=== PATIENT | female | born 1970 | race Caucasian/White ===

== ENCOUNTER → 2020-09-09 | Outpatient (CLI) | payer BC ==
--- NOTE | 2020-09-11 13:42 | MM ---
Reason for exam: screening (asymptomatic). Last mammogram was performed 4 years and 5 months ago. History: Patient had first child at age 38. Physical Findings: A clinical breast exam by your physician is recommended on an annual basis and results should be correlated with mammographic findings. MG Screening Mammo w CAD Bilateral CC and MLO view(s) were taken. Prior study comparison: April 23, 2016, bilateral MG 3d screening mammo w/cad. There is chronic nodularity in the left breast. No significant changes when compared with prior studies. ASSESSMENT: Benign, BI-RAD 2 RECOMMENDATION: Routine screening mammogram of both breasts in 1 year.
== END | disposition home or self-care (01) ==
LOC: RADMAMWWP 16:46
PROVIDERS: ATTEND Family Medicine
DX: Z12.31 Encounter for screening mammogram for malignant neoplasm of breast (principal)
CPT/HCPCS: 77067

== ENCOUNTER → 2020-09-19 | Outpatient (CLI) | payer BC ==
--- NOTE | 2020-09-19 12:39 | US ---
EXAMINATION TYPE: US pelvic complete DATE OF EXAM: 09/19/2020 COMPARISON: NONE CLINICAL HISTORY: 50-year-old female N93.9 abn uterine bleeding. Irregularity menses TECHNIQUE: Transabdominal (TA). Date of LMP: 09/09/20 FINDINGS: EXAM MEASUREMENTS: Uterus: 8.9 x 3.8 x 5.5 cm Endometrial Stripe: 1.6 cm Right Ovary: 2.3 x 0.9 x 1.5 cm Left Ovary: 2.0 x 1.0 x 2.2 cm 1. Uterus: Anteverted. The myometrium is slightly heterogeneous. 2. Endometrium: thickened to the upper limits of normal 3. Right Ovary: appears wnl 4. Left Ovary: appears wnl 5. Bilateral Adnexa: appears wnl 6. Posterior cul-de-sac: wnl IMPRESSION: 1. The endometrial stripe is thickened to the upper limits of normal. This should correspond to the l ate secretory phase of the menstrual cycle. Follow-up ultrasound can be performed. If persistent thic kening, further evaluation can be performed for endometrial hyperplasia, polyps, or endometrial carci noma. 2. Slightly heterogeneous myometrium which may be seen with diffuse small fibroid change or adenomyos is.
== END | disposition home or self-care (01) ==
LOC: RADUSWWP 08:29
PROVIDERS: ATTEND Family Medicine
DX: N85.00 Endometrial hyperplasia, unspecified (principal)
CPT/HCPCS: 76856

== ENCOUNTER → 2020-10-15 | Outpatient (CLI) | payer BC ==
--- NOTE | 2020-10-15 20:15 | CONS ---
CONSULTATION DATE OF SERVICE: 10/15/2020 This 50-year-old lady has [facility] obstructive sleep apnea- hypopnea syndrome. HISTORY OF PRESENT ILLNESS/SLEEP-WAKE EVALUATION: The patient was diagnosed with obstructive sleep apnea in 2006 in another institution. Since that time she has been on treatment with CPAP, but for the recent time she has had multiple problems with sleeping, even while she is using her CPAP equipment. Her sleep schedule on weekdays is from 11 p.m. to 6:45 a.m. and on weekends from midnight until 7 or 7:30 a.m. She does have problems with falling asleep, although she has a TV set in the bedroom. She sleeps in different positions. She wakes up from sleep 3 times with 2 episodes of nocturia. Even while she is using her machine she snores and has witnessed episodes of stopped breathing during sleep, dry mouth and restless legs. She has constant movements from back to side during sleep. No history of hypnagogic hallucinations, sleep paralysis or cataplexy. The patient's weight has significantly increased from around 205 pounds to 264 pounds at the present time. PAST MEDICAL HISTORY: Positive for hypertension. PAST SURGICAL HISTORY: D and C, right carpal tunnel syndrome surgery, ankle problems. MEDICATIONS: Hydrochlorothiazide 25 mg once a day. SOCIAL HISTORY: Negative for smoking. Alcohol consumption: Occasional. FAMILY HISTORY: Hypertension, hyperlipidemia. REVIEW OF SYSTEMS: No fevers. No double vision. No recent chest pain. No shortness of breath. No abdominal pain. No bleeding episodes. No blood in the urine. No seizure episodes. Awakenings from sleep. Snoring while using her CPAP. PHYSICAL EXAMINATION: GENERAL: A pleasant lady without distress. VITAL SIGNS: BP 165/102, HR 97, RR 15, height 5 feet 2 inches, weight 264, BMI 48.2, temperature 97.9, oxygen saturation at room air 96%. HEENT: PERRLA, EOMI. Evaluation of oropharynx showed tongue protrudes midline. Wide pillars. Position of soft palate Mallampati II. Big uvula. NECK: Supple. No JVD. Thyroid is not palpable. Neck measures 16-1/2 inches in circumference. LUNGS: Clear to percussion and to auscultation. Good air exchange. No wheezing or rhonchi. HEART: S1, S2 regular. No murmurs, gallops or rubs. ABDOMEN: Obese. EXTREMITIES: No clubbing or cyanosis. MEETING FACILITATOR: Awake, alert, and oriented X3. Cranial nerves 2 to 7 intact. There is no fasciculation or atrophy. noted. No focal deficits observed. IMPRESSION: 1. History of obstructive sleep apnea since 2006. The patient is using her CPAP equipment but has snoring and awakenings from sleep while on treatment with CPAP. She has not had any sleep studies for 15 years. Wide neck; 16-1/2 inches in circumference. Sleepiness; [place] Sleepiness Scale is in very high range at 16. 2. Obesity. BMI 48.2. 3. Hypertension. 4. Ankle arthritis. 5. Status post dilatation and curettage. 6. Status post right carpal tunnel syndrome, treated surgically. PLAN: 1. Get results of previous sleep studies. 2. CPAP titration for re-evaluation of effective CPAP pressure at the present time, possibly patient with a different mask and then patient should get new PAP equipment. 3. Losing weight. 4. Sleep hygiene with regular time in bed for at least 7-1/2 hours. 5. No driving if feeling any sleepiness. Thank you very much for referring this patient for consultation. Sincerely, Ceasar Schmidt MD, PhD, FAASM Diplomat of [employer] [place] [employer] [place] [employer] [facility] [place] MMODL / AMYN: [id number] /
== END ==
CPT/HCPCS: 99211

== ENCOUNTER → 2023-05-09 | Outpatient (CLI) | payer BC ==
--- NOTE | 2023-05-10 21:25 | MM ---
Reason for Exam: Screening (asymptomatic). Last mammogram was performed 2 year(s) and 8 month(s) ago. Patient History: Menarche at age 10. First Full-Term at age 38. Late child-bearing (after 28). Patient has history of breast feeding. Last menstrual period: 04/18/2023 Risk Values: Yesica 5 year model risk: 1.6%. NCI Lifetime model risk: 11.4%. Prior Study Comparison: 04/23/2016 Bilateral Screening Mammogram, [facility]. 09/09/2020 Bilateral Screening Mammogram, [facility]. Tissue Density: There are scattered fibroglandular densities. Findings: Analyzed By CAD. Chronic nodularity bilaterally as well as areas of unchanged asymmetric densities. There is no suspicious group of microcalcifications or new suspicious mass in either breast. Overall Assessment: Benign, BI-RAD 2 Management: Screening Mammogram of both breasts in 1 year. . Patient should continue monthly self-breast exams. A clinical breast exam by your physician is recommended on an annual basis. This exam should not preclude additional follow-up of suspicious palpable abnormalities. Note on Yesica scores and lifetime risk: 1. A Yesica score greater than 3% is considered moderate risk. If this is the case, consider specialist referral to assess eligibility for a risk reducing agent. 2. If overall lifetime risk for the development of breast cancer is 20% or higher, the patient may qualify for future screening with alternating mammogram and breast MRI. Electronically signed and approved by: Yue Lugo M.D. Radiologist
== END | disposition home or self-care (01) ==
LOC: RADMAMWWP 16:02
PROVIDERS: ATTEND Family Medicine
DX: Z12.31 Encounter for screening mammogram for malignant neoplasm of breast (principal)
CPT/HCPCS: 77067